=== PATIENT | female | born 1985 | race Caucasian/White ===

== ENCOUNTER 2016-11-14 14:28 | Emergency (ER) | payer SELFPAY | END 2016-11-14 15:27 | disposition home or self-care (01) | LOC: ER 14:28 | DX: J02.9 Acute pharyngitis, unspecified (principal); K12.1 Other forms of stomatitis; M54.2 Cervicalgia; K21.9 Gastro-esophageal reflux disease without esophagitis; Z88.0 Allergy status to penicillin; Z88.2 Allergy status to sulfonamides | CPT/HCPCS: 87502; 87651 ==